=== PATIENT | female | born 1980 | race American Indian/Alaskan Native ===

== ENCOUNTER 2020-09-18 20:14 | Emergency (ER) | payer MEDICAID ==
[2020-09-18 21:10] LABS: Basophils % (Auto) 0.4 % (0.0-1.8); Eosinophils # (Auto) 0.1 K/mm3 (0.0-0.4); Eosinophils % (Auto) 2.1 % (0.0-4.3); Hematocrit 36.6 % (30.3-42.9); Hemoglobin 12.3 gm/dl (10.1-14.3); Lymphocytes # (Auto) 3.8 K/mm3 (1.2-5.4); Mean Corpuscular HGB Conc 34 % (30-34); Mean Corpuscular Volume 83 fl (79-97); Monocytes # (Auto) 0.2 K/mm3 (0.0-0.8); Monocytes % (Auto) 3.6 % (0.0-7.3); Platelet Count 278 K/mm3 (140-440); Red Blood Count 4.43 M/mm3 (3.65-5.03); Red Cell Distribution Width 15.6 % (13.2-15.2)
[2020-09-18] MEDS ORDERED: ASPIRIN 325 MG TAB PO ONE (21:17)
[2020-09-18 21:26] LABS: Alanine Aminotransferase 17 units/L (7-56); Albumin 3.9 g/dL (3.9-5); Blood Urea Nitrogen 7 mg/dL (7-17); Calcium 8.8 mg/dL (8.4-10.2); Hemolysis Index 3
[2020-09-18 21:27] LABS: BUN/Creatinine Ratio 10
--- NOTE | 2020-09-18 22:38 | Emergency Department Report ---
ED Chest Pain HPI - General Chief Complaint: Chest Pain Stated Complaint: CHEST PAIN Time Seen by Provider: 09/18/20 21:16 Source: patient Mode of arrival: Ambulatory Limitations: No Limitations - History of Present Illness Initial Comments: Patient is a 40-year-old female presents emergency room complaints of right- sided chest pain that began yesterday. She states that it feels like occasional [id number]. She states that it self resolved yesterday but then returned again today. She states that occasionally her pain will increase with taking a deep breath or coughing. She denies any radiation of the pain down the arm or into the back or jaw. She denies any shortness of breath, cough, hemoptysis, fever, nausea, vomiting, diarrhea, leg swelling. She denies any recent travel, sick contact, recent surgery, hormone use. No past medical history. No allergies to medications. She is a non-smoker. Last menstrual cycle 09/04/2020. She denies any family history of cardiac issues or DVT/PE. Patient is inquiring if chest pain could be due to secondary to increased stress, she states that she has had a lot of increased stress lately. she denies SI or HI. - Related Data Allergies Allergy/AdvReac Type Severity Reaction Status Date / Time No Known Allergies Allergy Unverified 09/18/20 20:36 Heart Score - HEART Score History: Slightly suspicious EKG: Normal Age: < 45 Risk factors: 1-2 risk factors Troponin: < normal limit HEART Score: 1 ED Review of Systems ROS: Stated complaint: CHEST PAIN Other details as noted in HPI Comment: All other systems reviewed and negative ED Past Medical Hx - Past Medical History Previous Medical History?: No - Surgical History Past Surgical History?: No - Social History Smoking Status: Never Smoker Substance Use Type: None ED Physical Exam - General Limitations: No Limitations General appearance: alert, in no apparent distress - Head Head exam: Present: atraumatic, normocephalic - Eye Eye exam: Present: normal appearance - ENT ENT exam: Present: mucous membranes moist - Respiratory Respiratory exam: Present: normal lung sounds bilaterally. Absent: respiratory distress, wheezes, rales, rhonchi, stridor, chest wall tenderness, accessory muscle use, decreased breath sounds, prolonged expiratory - Cardiovascular Cardiovascular Exam: Present: regular rate, normal rhythm, normal heart sounds. Absent: systolic murmur, diastolic murmur, rubs, gallop - Neurological Exam Neurological exam: Present: alert, oriented X3 - Psychiatric Psychiatric exam: Present: normal affect, normal mood - Skin Skin exam: Present: warm, dry, intact ED Course Vital Signs 09/18/20 09/18/20 09/18/20 20:29 22:36 22:44 Temperature 97.7 F 98.0 F Pulse Rate 88 77 Respiratory 18 18 Rate Blood Pressure 128/74 131/87 O2 Sat by Pulse 98 98 96 Oximetry EVAN score - Evan Score Age > 65: (0) No Aspirin use within the Past 7 Days: (0) No 3 or more CAD Risk Factors: (0) No 2 or more Angina events in past 24 hrs: (0) No Known CAD with more than 50% Stenosis: (0) No Elevated Cardiac Markers: (0) No ST Deviation Greater than 0.5mm: (0) No EVAN Score: 0 ED Medical Decision Making - Lab Data Result diagrams: 09/18/20 20:59 09/18/20 20:59 Lab Results 09/18/20 09/18/20 09/18/20 Range/Units 20:59 20:59 20:59 WBC 6.8 (4.5-11.0) K/mm3 RBC 4.43 (3.65-5.03) M/mm3 Hgb 12.3 (10.1-14.3) gm/dl Hct 36.6 (30.3-42.9) % MCV 83 (79-97) fl MCH 28 (28-32) pg MCHC 34 (30-34) % RDW 15.6 H (13.2-15.2) % Plt Count 278 (140-440) K/mm3 Lymph % (Auto) 55.0 H (13.4-35.0) % Waldo % (Auto) 3.6 (0.0-7.3) % Eos % (Auto) 2.1 (0.0-4.3) % Baso % (Auto) 0.4 (0.0-1.8) % Lymph # (Auto) 3.8 (1.2-5.4) K/mm3 Waldo # (Auto) 0.2 (0.0-0.8) K/mm3 Eos # (Auto) 0.1 (0.0-0.4) K/mm3 Baso # (Auto) 0.0 (0.0-0.1) K/mm3 Seg Neutrophils % 38.9 L (40.0-70.0) % Seg Neutrophils # 2.7 (1.8-7.7) K/mm3 D-Dimer (0-234) ng/mlDDU Sodium 136 L (137-145) mmol/L Potassium 4.1 (3.6-5.0) mmol/L Chloride 102.2 (98-107) mmol/L Carbon Dioxide 27 (22-30) mmol/L Anion Gap 11 mmol/L BUN 7 (7-17) mg/dL Creatinine 0.7 (0.6-1.2) mg/dL Estimated GFR > 60 ml/min BUN/Creatinine Ratio 10 % Glucose 112 H (65-100) mg/dL Calcium 8.8 (8.4-10.2) mg/dL Total Bilirubin < 0.20 (0.1-1.2) mg/dL AST 17 (5-40) units/L ALT 17 (7-56) units/L Alkaline Phosphatase 81 (35-129) units/L Troponin T < 0.010 (0.00-0.029) ng/mL Total Protein 7.2 (6.3-8.2) g/dL Albumin 3.9 (3.9-5) g/dL Albumin/Globulin Ratio 1.2 % HCG, Qual Negative (Negative) 09/18/20 09/18/20 Range/Units 21:28 23:42 WBC (4.5-11.0) K/mm3 RBC (3.65-5.03) M/mm3 Hgb (10.1-14.3) gm/dl Hct (30.3-42.9) % MCV (79-97) fl MCH (28-32) pg MCHC (30-34) % RDW (13.2-15.2) % Plt Count (140-440) K/mm3 Lymph % (Auto) (13.4-35.0) % Waldo % (Auto) (0.0-7.3) % Eos % (Auto) (0.0-4.3) % Baso % (Auto) (0.0-1.8) % Lymph # (Auto) (1.2-5.4) K/mm3 Waldo # (Auto) (0.0-0.8) K/mm3 Eos # (Auto) (0.0-0.4) K/mm3 Baso # (Auto) (0.0-0.1) K/mm3 Seg Neutrophils % (40.0-70.0) % Seg Neutrophils # (1.8-7.7) K/mm3 D-Dimer 182.08 (0-234) ng/mlDDU Sodium (137-145) mmol/L Potassium (3.6-5.0) mmol/L Chloride (98-107) mmol/L Carbon Dioxide (22-30) mmol/L Anion Gap mmol/L BUN (7-17) mg/dL Creatinine (0.6-1.2) mg/dL Estimated GFR ml/min BUN/Creatinine Ratio % Glucose (65-100) mg/dL Calcium (8.4-10.2) mg/dL Total Bilirubin (0.1-1.2) mg/dL AST (5-40) units/L ALT (7-56) units/L Alkaline Phosphatase (35-129) units/L Troponin T < 0.010 (0.00-0.029) ng/mL Total Protein (6.3-8.2) g/dL Albumin (3.9-5) g/dL Albumin/Globulin Ratio % HCG, Qual (Negative) Vital Signs 09/18/20 09/18/20 09/18/20 20:29 22:36 22:44 Temperature 97.7 F 98.0 F Pulse Rate 88 77 Respiratory 18 18 Rate Blood Pressure 128/74 131/87 O2 Sat by Pulse 98 98 96 Oximetry - EKG Data EKG shows normal: sinus rhythm, axis, intervals, QRS complexes, ST-T waves Rate: normal - Radiology Data Radiology results: report reviewed Ordering Physician: YENNI MARIN Date of Service: 09/18/20 Procedure(s): XR chest routine 2V Accession Number(s): [id number] cc: YENNI MARIN Fluoro Time In Minutes: XR chest routine 2V INDICATION / CLINICAL INFORMATION: CP. COMPARISON: None available. FINDINGS: SUPPORT DEVICES: None. HEART /PULMONARY VASCULATURE: No significant abnormality. LUNGS / PLEURA: No significant pulmonary or pleural abnormality. No pneumothorax. ADDITIONAL FINDINGS: No significant additional findings. IMPRESSION: 1. No acute findings. Signer Name: Napoleon Zuluaga MD Signed: 09/18/2020 10:51 PM Workstation Name: [id number] Transcribed By: BOOM Dictated By: NAPOLEON ZULUAGA MD Electronically Authenticated By: NAPOLEON ZULUAGA MD Signed Date/Time: 09/18/202250 DD/ 49 TD/TT: - Medical Decision Making Patient is a 40-year-old female presents emergency room complaints of right- sided chest pain that began yesterday. She states that it feels like occasional [id number]. She states that it self resolved yesterday but then returned again today. She states that occasionally her pain will increase with taking a deep breath or coughing. She denies any radiation of the pain down the arm or into the back or jaw. She denies any shortness of breath, cough, hemoptysis, fever, nausea, vomiting, diarrhea, leg swelling. She denies any recent travel, sick contact, recent surgery, hormone use. No past medical history. No allergies to medications. She is a non-smoker. Last menstrual cycle 09/04/2020. She denies any family history of cardiac issues or DVT/PE. Patient is inquiring if chest pain could be due to secondary to increased stress, she states that she has had a lot of increased stress lately. she denies SI or HI. Vitals are normal. No abnormality on physical examination as documented in chart. Labs are normal. Troponin is negative x2. D-dimer is negative. EKG is within normal limits. Chest x-ray 1. No acute findings. Patient is PERC criteria negative for PE, D-dimer is negative, PE very unlikely. Heart score is 1, EVAN score is 0, very low risk for cardiac event, do not suspect ACS. Patient does not have any clinical signs or symptoms or significant cardiac history to suggest aortic aneurysm or dissection. Symptoms could be related to increased stress and anxiety. Patient be referred to primary care doctor and outpatient cardiology. Discussed very strict return precautions with patient. Advised patient Please follow-up with your primary care doctor. Please follow-up with a student finance advisor. Return to emergency room for any new or worsening symptoms. Critical care attestation.: If time is entered above; I have spent that time in minutes in the direct care of this critically ill patient, excluding procedure time. ED Disposition Clinical Impression: Chest pain Qualifiers: Chest pain type: unspecified Qualified Code(s): R07.9 - Chest pain, unspecified Disposition: TO HOME OR SELFCARE Is pt being admited?: No Does the pt Need Aspirin: No Condition: Stable Instructions: Mindfulness-Based Stress Reduction, Nonspecific Chest Pain, Adult, Chest Pain (ED) Additional Instructions: Please follow-up with your primary care doctor. Please follow-up with a student finance advisor. Return to emergency room for any new or worsening symptoms. Referrals: BETI HERNANDEZ [Other] - 2-3 Days JOHN MANNING MD [Staff Physician] - 2-3 Days Time of Disposition: 00:14 Print Language: JAPANESE
--- NOTE | 2020-09-18 22:55 | XRay Report ---
XR chest routine 2V INDICATION / CLINICAL INFORMATION: CP. COMPARISON: None available. FINDINGS: SUPPORT DEVICES: None. HEART /PULMONARY VASCULATURE: No significant abnormality. LUNGS / PLEURA: No significant pulmonary or pleural abnormality. No pneumothorax. ADDITIONAL FINDINGS: No significant additional findings. IMPRESSION: 1. No acute findings. Signer Name: Donn Zuluaga MD Signed: 09/18/2020 10:51 PM Workstation Name: [id number]
[2020-09-18 23:12] VITALS: BP 131/87
== END 2020-09-19 00:35 | disposition home or self-care (01) ==
LOC: ED 20:14
DX: R07.89 Other chest pain (principal)
CPT/HCPCS: 36415; 71046; 80053; 84484; 84703; 85025; 85379; 93005